=== PATIENT | male | born 1960 | race Caucasian/White ===

== ENCOUNTER 2020-05-22 06:27 | Inpatient (IN) ==
[~2020-05-22 06:27] MED LIST: ceFAZolin 1,000 MG, Sodium Chloride IRRigation 1,000 ML IR ONE
[2020-05-22] MEDS ORDERED: Heparin 1,000 UNITS/500 mL 500 ML ONE (06:38)
[2020-05-22] MEDS ORDERED: *HR* FentaNYL (PF) 100 MCG/2 ML VIAL ONE ×3 (07:00→08:34)
[2020-05-22] MEDS ORDERED: Ondansetron 4 MG/2 ML VIAL ONE (07:00)
[2020-05-22] MEDS ORDERED: Lidocaine -MPF 2% 2 ML VIAL ONE (07:00)
[2020-05-22] MEDS ORDERED: *HR* Propofol 200 MG/20 ML VIAL IVP ONE ×2 (07:00→11:50)
[2020-05-22] MEDS ORDERED: *HR* Midazolam HCl 2 MG/2 ML VIAL ONE (07:00)
[2020-05-22] MEDS ORDERED: Dexamethasone 4 MG/ML VIAL ONE (07:00)
[2020-05-22] MEDS ORDERED: *HR* Labetalol 20 MG/4 ML SYRINGE IVP ONE (07:03)
[2020-05-22] MEDS ORDERED: *HR* Phenylephrine 10 MG/ML VIAL ONE (07:03)
[2020-05-22] MEDS ORDERED: EPHEDrine 50 MG/ML VIAL ONE (07:04)
[2020-05-22] MEDS ORDERED: EPINEPHrine 1 MG/ML VIAL ONE (07:04)
[2020-05-22] MEDS ORDERED: *HR* Vasopressin 20 UNIT/ML VIAL ONE (07:08)
[2020-05-22] MEDS ORDERED: NiCARdipine 2.5 MG/10 ML Syringe IVPB ONE (07:08)
[2020-05-22] MEDS ORDERED: CeFAZolin Syr 2,000MG/20 ML 2,000 MG/20 ML SYRINGE IVPB ONE (07:24)
[2020-05-22] MEDS ORDERED: *HR* Heparin 5,000 UNIT/ML VIAL ONE ×2 (07:25→09:48)
[2020-05-22] MEDS ORDERED: Albumin Human 5% 12.5 GM/250 ML IV.SOLN ONE (07:28)
[2020-05-22] MEDS ORDERED: Ringers Solution, Lactated 1,000 ML IVC SCH (07:30)
[2020-05-22] MEDS ORDERED: *HR* Norepinephrine 4 MG/4 ML VIAL IVC ONE (07:31)
[2020-05-22] MEDS ORDERED: D5% in Water 250 ML ONE (07:31)
[2020-05-22] MEDS ORDERED: Sodium Bicarbonate 50 MEQ/50 ML VIAL ONE (07:31)
[2020-05-22] MEDS ORDERED: Ondansetron 4 MG/2 ML VIAL IVP ONE (07:45)
[2020-05-22] MEDS ORDERED: Mannitol 20% 100 GM/500 ML IV.SOLN IVC ONE (07:56)
[2020-05-22 08:31] LABS: ABG Base Excess 2 mEq/L (-2 to 3); ABG Chloride 111 mEq/L (98-107); ABG Glucose 105 mg/dL (60-95); ABG HCO3 27 mEq/L (21-27); ABG Ionized Calcium 1.19 mmol/L (1.15-1.35); ABG Oxygen Saturation 100 % (95-98); ABG PCO2 44 mmHg (35-45); ABG PO2 208 mmHg (85-104); ABG TCO2 28 mEq/L (20-26)
[2020-05-22] MEDS ORDERED: *HR* Rocuronium Bromide 50 MG/5 ML VIAL ONE ×2 (08:35→10:04)
[2020-05-22] MEDS ORDERED: *HR* HYDROMORPHONE 2 MG/ML VIAL ONE ×2 (11:50→12:43)
[2020-05-22] MEDS: *HR* HYDROmorphone PF 0.5 MG/0.5 ML SYRINGE IVP PRN ×2 (12:56→13:03)
[2020-05-22] MEDS ORDERED: *HR* Labetalol 20 MG/4 ML SYRINGE IVP PRN (14:11)
[2020-05-22] MEDS ORDERED: Naloxone 0.4 MG/ML INJ IVP PRN (14:11)
[2020-05-22] MEDS: Ondansetron 4 MG/2 ML VIAL IVP PRN (14:33)
[2020-05-22] MEDS: *HR* HYDROmorphone (PF) 1 MG/ML SYRINGE IVP PRN ×3 (14:36→22:14)
[2020-05-22] MEDS: 0.9 % Sodium Chloride 1,000 ML IVC SCH (14:40)
[2020-05-22 15:11] LABS: Hematocrit 39.3 % (37.5-50.1); Hemoglobin 13.1 g/dL (12.9-16.9)
[2020-05-22] MEDS: CeFAZolin 2 GM/120 ML BAG IVPB SCH (16:36)
[2020-05-22] MEDS: *HR* Metoprolol 5 MG/5 ML VIAL IVP SCH (18:06)
[2020-05-22] MEDS: Famotidine 20 MG/2 ML VIAL IVP SCH (18:06)
[2020-05-23] MEDS: CeFAZolin 2 GM/120 ML BAG IVPB SCH ×2 (00:23→07:30)
[2020-05-23] MEDS: *HR* Metoprolol 5 MG/5 ML VIAL IVP SCH ×5 (00:23→23:47)
[2020-05-23] MEDS: 0.9 % Sodium Chloride 1,000 ML IVC SCH ×3 (00:24→19:46)
[2020-05-23] MEDS: Ketorolac 15 MG/ML VIAL IVP PRN ×3 (02:20→19:47)
[2020-05-23 04:10] LABS: Basophils % 0.1 %; Hematocrit 36.9 % (37.5-50.1); Hemoglobin 12.3 g/dL (12.9-16.9); Immature Granulocytes % 0.3 % (0-4); Lymphocytes # 1.6 K/mcL (0.6-4.6); Lymphocytes % 10.1 %; Mean Corpuscular HGB Conc 33.3 g/dL (31.6-35.5); Mean Corpuscular Hemoglobin 29.2 pg (28.0-33.3); Mean Corpuscular Volume 87.6 fL (83.0-100.0); Monocytes # 1.7 K/mcL (0.0-1.3); Monocytes % 10.5 %; Neutrophils # 12.4 K/mcL (1.6-8.9); Platelet Count 195 K/mcL (140-400); Red Blood Count 4.21 M/mcL (4.19-5.50); Red Cell Distribution Width 13.6 % (11.5-14.5); White Blood Count 15.7 K/mcL (4.3-11.1)
[2020-05-23] MEDS: *HR* HYDROmorphone (PF) 1 MG/ML SYRINGE IVP PRN ×4 (04:14→17:32)
[2020-05-23 04:29] LABS: BUN/Creatinine Ratio 20 (6-26); Blood Urea Nitrogen 14 mg/dL (6-20); Carbon Dioxide 25 mEq/L (23-29); Chloride 108 mEq/L (98-107); Glucose 116 mg/dL (70-105); Osmolality,Calculated 291 (280-300); Potassium 3.9 mEq/L (3.5-5.1); Sodium 140 mEq/L (136-145); eGFR For African Americans > 60 (> 60); eGFR For Non-African Americans > 60 (> 60)
[2020-05-23] MEDS: Famotidine 20 MG/2 ML VIAL IVP SCH ×2 (05:25→17:32)
[2020-05-24] MEDS: *HR* HYDROmorphone (PF) 1 MG/ML SYRINGE IVP PRN ×6 (02:00→22:01)
[2020-05-24] MEDS: Ketorolac 15 MG/ML VIAL IVP PRN ×3 (02:00→16:04)
[2020-05-24] MEDS: Famotidine 20 MG/2 ML VIAL IVP SCH ×2 (05:18→17:52)
[2020-05-24] MEDS: 0.9 % Sodium Chloride 1,000 ML IVC SCH ×3 (05:19→20:02)
[2020-05-24] MEDS: *HR* Metoprolol 5 MG/5 ML VIAL IVP SCH ×3 (05:19→17:52)
[2020-05-24] MEDS: Ondansetron 4 MG/2 ML VIAL IVP PRN ×2 (08:03→18:03)
[2020-05-25] MEDS: *HR* Metoprolol 5 MG/5 ML VIAL IVP SCH ×3 (00:54→12:08)
[2020-05-25] MEDS: *HR* HYDROmorphone (PF) 1 MG/ML SYRINGE IVP PRN ×5 (00:59→23:00)
[2020-05-25] MEDS: Ketorolac 15 MG/ML VIAL IVP PRN ×2 (04:11→12:25)
[2020-05-25] MEDS: Famotidine 20 MG/2 ML VIAL IVP SCH (05:05)
[2020-05-25 06:35] LABS: Hematocrit 35.3 % (37.5-50.1); Hemoglobin 11.8 g/dL (12.9-16.9); Mean Corpuscular HGB Conc 33.4 g/dL (31.6-35.5); Mean Corpuscular Volume 89.8 fL (83.0-100.0); Platelet Count 187 K/mcL (140-400); Red Blood Count 3.93 M/mcL (4.19-5.50); White Blood Count 14.1 K/mcL (4.3-11.1)
[2020-05-25 06:43] LABS: BUN/Creatinine Ratio 27 (6-26); Blood Urea Nitrogen 16 mg/dL (6-20); Calcium 8.9 mg/dL (8.6-10.3); Carbon Dioxide 26 mEq/L (23-29); Chloride 106 mEq/L (98-107); Glucose 104 mg/dL (70-105); Osmolality,Calculated 291 (280-300); Potassium 3.7 mEq/L (3.5-5.1); Sodium 140 mEq/L (136-145); eGFR For African Americans > 60 (> 60); eGFR For Non-African Americans > 60 (> 60)
[2020-05-25] MEDS: Famotidine 20 MG TABLET PO SCH (20:19)
[2020-05-25] MEDS: Gabapentin 400 MG CAPSULE PO SCH (20:20)
[2020-05-25] MEDS: Melatonin 3 MG TABLET PO SCH (20:20)
[2020-05-26] MEDS: *HR* HYDROmorphone (PF) 1 MG/ML SYRINGE IVP PRN (03:30)
[2020-05-26] MEDS: Famotidine 20 MG TABLET PO SCH ×2 (07:33→20:05)
[2020-05-26] MEDS: Gabapentin 400 MG CAPSULE PO SCH ×2 (07:33→20:04)
[2020-05-26] MEDS: Ketorolac 15 MG/ML VIAL IVP PRN ×3 (07:34→18:40)
[2020-05-26] MEDS: Aspirin 81 MG TAB.CHEW PO SCH (12:48)
[2020-05-26] MEDS: Ondansetron 4 MG/2 ML VIAL IVP PRN (13:01)
[2020-05-26] MEDS: Melatonin 3 MG TABLET PO SCH (20:04)
[2020-05-26] MEDS: *HR* HYDROcodone/Acet 5/325 mg TABLET PO PRN (20:05)
[2020-05-27] MEDS: *HR* HYDROcodone/Acet 5/325 mg TABLET PO PRN ×2 (05:23→10:05)
[2020-05-27] MEDS: Ketorolac 15 MG/ML VIAL IVP PRN (08:52)
[2020-05-27] MEDS: Gabapentin 400 MG CAPSULE PO SCH (08:53)
[2020-05-27] MEDS: Aspirin 81 MG TAB.CHEW PO SCH (08:53)
[2020-05-27] MEDS: Famotidine 20 MG TABLET PO SCH (08:54)
[2020-05-27 11:46] VITALS: BP 141/78
== END 2020-05-27 14:20 | disposition home or self-care (01) | DRG 271 ==
LOC: SAMDAY 06:27 → 2NNU 13:49
PROVIDERS: ADMIT Surgery Vascular Surgery; ATTEND Surgery Vascular Surgery

== ENCOUNTER 2021-01-01 10:38 | Observation (INO) ==
[2021-01-01] MEDS ORDERED: Aspirin 325 MG TABLET PO ONE (11:13)
[2021-01-01 11:21] LABS: Basophils % 0.1 %; Eosinophils # 0.3 K/mcL (0.0-0.6); Eosinophils % 3.7 %; Hematocrit 41.8 % (37.5-50.1); Hemoglobin 14.2 g/dL (12.9-16.9); Immature Granulocytes % 0.3 % (0-4); Lymphocytes # 2.1 K/mcL (0.6-4.6); Lymphocytes % 30.4 %; Mean Corpuscular Hemoglobin 29.8 pg (28.0-33.3); Mean Corpuscular Volume 87.8 fL (83.0-100.0); Mean Platelet Volume 9.3 fL (9.4-12.4); Monocytes # 0.6 K/mcL (0.0-1.3); Monocytes % 8.1 %; Neutrophils # 4.1 K/mcL (1.6-8.9); Platelet Count 205 K/mcL (140-400); Red Blood Count 4.76 M/mcL (4.19-5.50); Red Cell Distribution Width 13.5 % (11.5-14.5); Segmented Neutrophils % 57.4 %; White Blood Count 7.1 K/mcL (4.3-11.1)
[2021-01-01 11:39] LABS: Alanine Aminotransferase 19 Units/L (7-52); Albumin 4.4 g/dL (3.5-5.7); Albumin/Globulin Ratio 1.8 (1.1-2.2); Alkaline Phosphatase 69 Units/L (34-104); Aspartate Amino Transferase 22 Units/L (13-39); BUN/Creatinine Ratio 16 (6-26); Bilirubin,Total 0.7 mg/dL (0.3-1.0); Blood Urea Nitrogen 13 mg/dL (6-20); Calcium 9.8 mg/dL (8.6-10.3); Carbon Dioxide 27 mEq/L (23-29); Chloride 106 mEq/L (98-107); Globulin 2.5 g/dL (2.4-3.5); Glucose 101 mg/dL (70-105); Osmolality,Calculated 288 (280-300); Sodium 139 mEq/L (136-145); Total Protein 6.9 g/dL (6.4-8.9); Troponin I 0.09 ng/mL (< 0.04); eGFR For African Americans > 60 (> 60); eGFR For Non-African Americans > 60 (> 60)
[2021-01-01] MEDS ORDERED: Isovue-370 500 ML BOTTLE IVP ONE (11:54)
[2021-01-01] MEDS ORDERED: *HR* Heparin 5,000 UNIT/ML VIAL IVP PRN ×2 (12:42)
[2021-01-01] MEDS ORDERED: *HR* Heparin 5,000 UNIT/ML VIAL IVP ONE (12:42)
[2021-01-01] MEDS ORDERED: Heparin 25,000UNIT/250ML 1/2NS 25,000 UNIT/250 ML IV.SOLN IVC SCH (12:45)
[2021-01-01] MEDS ORDERED: Nitroglycerin 0.4 MG TAB.SUBL SL PRN (12:51)
[2021-01-01] MEDS ORDERED: *HR* OxyCODONE Immed Rel 5 MG TABLET PO PRN (13:00)
[2021-01-01] MEDS ORDERED: Acetaminophen 325 MG TABLET PO PRN (13:00)
[2021-01-01] MEDS ORDERED: Naloxone 0.4 MG/ML INJ IVP PRN (13:00)
[2021-01-01] MEDS ORDERED: Ondansetron 4 MG/2 ML VIAL IVP PRN (13:00)
[2021-01-01 13:29] LABS: INR 1.1; Prothrombin Time 12.2 Seconds (9.4-12.1)
[2021-01-01 13:32] LABS: Heparin anti-factor XA UFH < 0.04 IU/mL (0.30-0.70)
[2021-01-01] MEDS ORDERED: Perflutren Lipid Microsphere 1.3 ML in 0.9 % Sodium Chloride 8.7 ML IVP PRN (14:29)
[2021-01-01] MEDS: rOPINIRole 0.25 MG TABLET PO SCH ×2 (15:50→20:27)
[2021-01-01] MEDS: Gabapentin 400 MG CAPSULE PO SCH (20:27)
[2021-01-01] MEDS ORDERED: Melatonin 3 MG TABLET PO SCH (21:00)
[2021-01-02 03:27] LABS: Hematocrit 41.9 % (37.5-50.1); Hemoglobin 14.1 g/dL (12.9-16.9); Mean Corpuscular HGB Conc 33.7 g/dL (31.6-35.5); Mean Corpuscular Hemoglobin 29.2 pg (28.0-33.3); Mean Corpuscular Volume 86.7 fL (83.0-100.0); Mean Platelet Volume 9.2 fL (9.4-12.4); Platelet Count 199 K/mcL (140-400); Red Blood Count 4.83 M/mcL (4.19-5.50); Red Cell Distribution Width 13.5 % (11.5-14.5); White Blood Count 7.7 K/mcL (4.3-11.1)
[2021-01-02 03:37] LABS: BUN/Creatinine Ratio 19 (6-26); Blood Urea Nitrogen 15 mg/dL (6-20); Calcium 9.8 mg/dL (8.6-10.3); Carbon Dioxide 28 mEq/L (23-29); Chloride 106 mEq/L (98-107); Glucose 101 mg/dL (70-105); Osmolality,Calculated 291 (280-300); Potassium 4.3 mEq/L (3.5-5.1); Sodium 140 mEq/L (136-145); Troponin I < 0.03 ng/mL (< 0.04); eGFR For African Americans > 60 (> 60); eGFR For Non-African Americans > 60 (> 60)
[2021-01-02] MEDS ORDERED: Regadenoson 0.4 MG/5 ML SYRINGE IVP ONE (06:26)
[2021-01-02] MEDS: Gabapentin 400 MG CAPSULE PO SCH (08:55)
[2021-01-02] MEDS: rOPINIRole 0.25 MG TABLET PO SCH (08:55)
[2021-01-02] MEDS ORDERED: Aspirin Enteric Coated 81 MG Tablet PO SCH (09:00)
[2021-01-02 10:38] VITALS: BP 114/70
== END 2021-01-02 14:59 | disposition home or self-care (01) ==
LOC: EMEROOARM 10:38 → 2ANU 10:38
PROVIDERS: ADMIT Internal Medicine; ATTEND Internal Medicine